=== PATIENT | female | born 1990 | race Caucasian/White ===

== ENCOUNTER 2016-12-05 07:15 | Emergency (ER) | payer MEDICAID ==
[~2016-12-05] VITALS: Ht 162.6 cm; Wt 52.3 kg
[2016-12-05] MEDS ORDERED: LORazepam 1 MG TABLET PO ONE (08:15)
[2016-12-05 09:37] VITALS: BP 118/87
== END 2016-12-05 09:45 | disposition home or self-care (01) ==
LOC: EMS 07:17
DX: F15.10 Other stimulant abuse, uncomplicated (principal); F11.90 Opioid use, unspecified, uncomplicated; F17.210 Nicotine dependence, cigarettes, uncomplicated
CPT/HCPCS: 99283

== ENCOUNTER 2017-02-27 13:22 | Emergency (ER) | payer MEDICAID, OTHER ==
[~2017-02-27] VITALS: Ht 162.6 cm; Wt 50.0 kg
[2017-02-27] MEDS ORDERED: IBUPROFEN 400 MG TABLET PO ONE (15:45)
[2017-02-27 16:03] VITALS: BP 118/69
== END 2017-02-27 16:10 | disposition home or self-care (01) ==
LOC: EMS 13:24
DX: L03.114 Cellulitis of left upper limb (principal); F19.90 Other psychoactive substance use, unspecified, uncomplicated; F11.90 Opioid use, unspecified, uncomplicated; F17.210 Nicotine dependence, cigarettes, uncomplicated
CPT/HCPCS: 99283